=== PATIENT | female | born 1940 ===

== ENCOUNTER 2017-11-16 23:57 | Emergency (ER) | payer MEDICARE, MEDICAID ==
--- NOTE | 2017-11-17 00:37 | C.PDOC ---
History Of Present Illness 77 y/o female with PMHx of GERD, now presents with epigastric pain and left flank pain for several hours. Associated with yellow vomiting. Patient denies any hematemesis, urinary symptoms, constipation, and diarrhea. Denies prior Hx of kidney stones. Pain is similar to that with prior episodes of GERD, but now also includes flank pain. Time Seen by Provider: 11/17/17 00:32 Chief Complaint (Nursing): Abdominal Pain History Per: Patient History/Exam Limitations: no limitations Onset/Duration Of Symptoms: Hrs Current Symptoms Are (Timing): Still Present Associated Symptoms: Vomiting, Back Pain Past Medical History Reviewed: Historical Data, Nursing Documentation, Vital Signs Vital Signs: Last Vital Signs Temp 97.3 F L 11/17/17 02:57 Pulse 75 11/17/17 02:57 Resp 18 11/17/17 02:57 BP 124/84 11/17/17 02:57 Pulse Ox 98 11/17/17 04:47 - Medical History PMH: GERD, HTN, Hypercholesterolemia Surgical History: Cholecystectomy, Pacemaker Family History: States: No Known Family Hx - Social History Hx Alcohol Use: No Hx Substance Use: No - Immunization History Hx Tetanus Toxoid Vaccination: No Hx Influenza Vaccination: Yes Hx Pneumococcal Vaccination: Yes Review Of Systems Except As Marked, All Systems Reviewed And Found Negative. Constitutional: Negative for: Fever, Chills Gastrointestinal: Positive for: Nausea, Vomiting, Abdominal Pain (epigastric). Negative for: Diarrhea, Constipation, Hematemesis Genitourinary: Negative for: Dysuria, Frequency, Incontinence, Hematuria Musculoskeletal: Positive for: Other (Left flank pain) Physical Exam - Physical Exam Appears: Non-toxic, No Acute Distress Skin: Normal Color, Warm, Dry Head: Atraumatic, Normacephalic Eye(s): bilateral: Normal Inspection (Anicteric sclerae, conjunctiva pink), PERRL, EOMI Ear(s): Bilateral: Normal Oral Mucosa: Moist Neck: Normal, Normal ROM, Supple Chest: Symmetrical Cardiovascular: Rhythm Regular, No Murmur, Other (S1,S2 are wnl) Respiratory: No Accessory Muscle Use, No Rhonchi, No Wheezing, Other (Lungs clear to auscultation) Gastrointestinal/Abdominal: Soft, Tenderness (Epigastric discomfort on palpation , No lower abdominal discomfort), No Guarding, No Rebound Back: CVA Tenderness (Left), No Vertebral Tenderness Extremity: Bilateral: Atraumatic, Normal Color And Temperature, Normal ROM Neurological/Psych: Oriented x3, Normal Speech ED Course And Treatment - Laboratory Results Result Diagrams: 11/17/17 00:47 11/17/17 00:47 O2 Sat by Pulse Oximetry: 98 (RA) Pulse Ox Interpretation: Normal Medical Decision Making Medical Decision Making: Impression: Gastritis vs GERD, also consider renal colic Initial Plan: * CMP * CBC * Lipase * Urinalysis * Morphine 2 mg IVP * Reglan 10 mg IVP * CT Abd/Pelvis * Reevaluation after meds given Pt with essentially neg w/u.Pt is comfortable after antiemetics,protonix Disposition - Disposition Referrals: [facility] [Outside] Disposition: HOME/ ROUTINE Disposition Time: 04:49 Condition: FAIR Prescriptions: Pantoprazole Sodium [Protonix] 40 mg PO DAILY #14 tab Instructions: Acid Reflux (Gastroesophageal Reflux Disease), Adult (DC) Forms: [employer] (Chilean) Print Language: SWEDISH - Clinical Impression Clinical Impression: Gastroesophageal reflux disease - Scribe Statement The provider has reviewed the documentation as recorded by the Scribe (Quin Petty) Provider Attestation: All medical record entries made by the Scribe were at my direction and personally dictated by me. I have reviewed the chart and agree that the record accurately reflects my personal performance of the history, physical exam, medical decision making, and the department course for this patient. I have also personally directed, reviewed, and agree with the discharge instructions and disposition.
[2017-11-17 00:51] LABS: BASO % 0.6 % (0.0-2.0); EOS % 0.1 % (0.0-4.0); HEMOGLOBIN 14.6 g/dL (11.0-16.0); LYMPH # 0.8 K/uL (1.0-4.3); LYMPH % 11.3 % (20.0-40.0); MEAN CELL VOLUME 87.9 fL (81.0-99.0); MEAN CORPUSCULAR HEMOGLOBIN 30.7 pg (27.0-31.0); MEAN CORPUSCULAR HGB CONC 34.9 g/dL (33.0-37.0); MEAN PLATELET VOLUME 8.4 fL (7.2-11.7); MONO # 0.4 K/uL (0.0-0.8); MONO % 5.6 % (0.0-10.0); NEUT # 5.5 K/uL (1.8-7.0); NEUT % 82.4 % (50.0-75.0); RBC 4.76 Mil/uL (3.80-5.20); RED CELL DISTRIBUTION WIDTH 14.1 % (11.5-14.5); WHITE BLOOD COUNT 6.7 K/uL (4.8-10.8)
[2017-11-17 01:01] LABS: CALCIUM 8.8 mg/dl (8.6-10.4); GFR AFRICAN-AMERICAN > 60; GFR NON-AFRICAN AMERICAN > 60; LIPASE 83 U/L (23-300)
[2017-11-17 01:04] LABS: ALB/GLOB RATIO 1.3 (1.0-2.1); ALBUMIN 4.3 g/dL (3.5-5.0); ALT/SGPT 14 U/L (9-52); AST/SGOT 34 U/L (14-36); BLOOD UREA NITROGEN 13 mg/dL (7-17)
[2017-11-17] MEDS ORDERED: Morphine 4 MG/ML VIAL ONE (01:14)
--- NOTE | 2017-11-17 01:44 | CT ---
EXAM: CT Abdomen and Pelvis Without Intravenous Contrast CLINICAL HISTORY: 77 years old, female; Pain; Abdominal pain; Additional info: Abd pain TECHNIQUE: Axial computed tomography images of the abdomen and pelvis without intravenous contrast. All CT scans at this facility use one or more dose reduction techniques, viz.: automated exposure control; ma/kV adjustment per patient size (including targeted exams where dose is matched to indication; i.e. head); or iterative reconstruction technique. 638 images are submitted. 638 images are submitted. Coronal , axial and sagittal reformatted images were created and reviewed. COMPARISON: No relevant prior studies available. FINDINGS: Lower thorax: Bibasilar mild nonspecific infiltrates are present, consistent with atelectasis or pneumonia. Cardiomegaly. There are cardiac leads from a cardiac rhythm maintenance device. Small hiatal hernia. ABDOMEN: Liver: Unremarkable. Gallbladder and bile ducts: Cholecystectomy. Pancreas: Unremarkable. No ductal dilation. Spleen: Unremarkable. No splenomegaly. Adrenals: Right adrenal nodule measuring 1.5 cm with mean Hounsfield unit of -9 representing adrenal adenoma. There is a fat containing nodule in the left adrenal gland seen on image 36 series 3 representing myelolipoma. Kidneys and ureters: No ureteral stones. No hydronephrosis. Stomach and bowel: Nonspecific gastric thickening likely due to under distention. Correlation with clinical data is recommended if gastritis is suspected. Diverticulosis. Sigmoid postoperative changes. Large amount of stool in the colon. Correlation with patient's clinical history of constipation is recommended. Appendix: Normal appendix. PELVIS: Bladder: Partially decompressed bladder with bladder wall thickening. Correlation with urinalysis is recommended only if clinical cystitis is suspected. Reproductive: Uterus is seen. ABDOMEN and PELVIS: Intraperitoneal space: Unremarkable. No free air. No significant fluid collection. Bones/joints: L4-L5 degenerative disc disease with vacuum disc. Degenerative changes within bilateral hips. No acute fracture. No dislocation. Soft tissues: Unremarkable. Vasculature: Left pelvic phleboliths. No abdominal aortic aneurysm. Lymph nodes: Unremarkable. No enlarged lymph nodes. IMPRESSION: No acute abnormality on this noncontrast CT examination of the abdomen and pelvis .
[2017-11-17 02:58] VITALS: BP 124/84; PULSE 75; RESP 18; TEMP 97.3
[2017-11-17 04:48] VITALS: O2SAT 98
== END 2017-11-17 02:57 | disposition home or self-care (01) ==
LOC: SUPCPDRO 23:57 → C.ER 23:57
DX: K21.9 Gastro-esophageal reflux disease without esophagitis (principal)
CPT/HCPCS: 74176; 80053; 83690; 85025; 96374; 96375; 99284; J2270; J2765

== ENCOUNTER 2017-12-01 07:15 | Day surgery (SDC) | payer MEDICARE, MEDICAID ==
[2017-12-01 07:34] VITALS: BMI 28.5
[2017-12-01] MEDS ORDERED: Lactated Ringer's 500 ML IV ONE (08:32)
[2017-12-01] MEDS ORDERED: Propofol 10 mg/ml Inj (20 ML) ONE (08:43)
[2017-12-01] MEDS ORDERED: Lidocaine Hydrochloride 5 ML INJ ONE (08:43)
[2017-12-01 09:16] VITALS: TEMP 97.8
[2017-12-01 09:54] VITALS: O2SAT 100
[2017-12-01 10:17] VITALS: BP 115/67; PULSE 60; RESP 12
== END 2017-12-01 10:15 | disposition home or self-care (01) ==
LOC: C.ENDO 07:15
PROVIDERS: ATTEND Internal Medicine Gastroenterology
DX: Z12.11 Encounter for screening for malignant neoplasm of colon (principal); Z85.038 Personal history of other malignant neoplasm of large intestine; K21.9 Gastro-esophageal reflux disease without esophagitis; K57.30 Diverticulosis of large intestine without perforation or abscess without bleeding; K64.1 Second degree hemorrhoids; K21.0 Gastro-esophageal reflux disease with esophagitis; K29.70 Gastritis, unspecified, without bleeding; K26.9 Duodenal ulcer, unspecified as acute or chronic, without hemorrhage or perforation; E78.5 Hyperlipidemia, unspecified; I10 Essential (primary) hypertension; E03.9 Hypothyroidism, unspecified; Z79.899 Other long term (current) drug therapy
CPT/HCPCS: 43239; 88305; G0105; J2704; J7120

== ENCOUNTER 2018-03-02 05:47 | Day surgery (SDC) | payer MEDICARE, MEDICAID ==
[2018-03-02] MEDS ORDERED: Propofol 10 mg/ml Inj (20 ML) ONE (07:51)
[2018-03-02] MEDS ORDERED: Lactated Ringer's 500 ML IV ONE (08:02)
--- NOTE | 2018-03-02 08:02 | CP.SDSHP ---
Same Day Surgery H & P - History Proposed Procedure: colonoscopy Pre-Op Diagnosis: history of colon cancer - Previous Medical/Surgical History Cardiac: Hypertension - Allergies Allergies: Allergies No Known Allergies Allergy (Verified 03/02/18 06:54) - Physical Exam General Appearance: NAD Vital Signs: Vital Signs 03/02/18 06:45 Temperature 989.9 F H Pulse Rate 66 Respiratory 19 Rate Blood Pressure 153/83 H O2 Sat by Pulse 97 Oximetry Mental Status: Alert & Oriented x3 Neuro: WNL Heart: WNL Lungs: WNL GI: WNL - {Optional Preform as Required} Abdomen: WNL - Impression Pt. Evaluated Today:Candidate for Anesthesia & Procedure: Yes - Date & Time Date: 03/02/18 Time: 08:02 Short Stay Discharge - Short Stay Discharge Admitting Diagnosis/Reason for Visit: HISTORY OF COLON CA Disposition: HOME/ ROUTINE
[2018-03-02] MEDS ORDERED: Lidocaine Hydrochloride 5 ML INJ ONE (08:38)
[2018-03-02 08:52] VITALS: TEMP 98
[2018-03-02 09:07] VITALS: O2SAT 100
[2018-03-02 09:25] VITALS: RESP 17
[2018-03-02 09:26] VITALS: BP 140/85; PULSE 64
== END 2018-03-02 09:45 | disposition home or self-care (01) ==
LOC: C.ENDO 05:47
PROVIDERS: ATTEND Internal Medicine Gastroenterology
DX: D12.5 Benign neoplasm of sigmoid colon (principal); Z85.038 Personal history of other malignant neoplasm of large intestine; Z08 Encounter for follow-up examination after completed treatment for malignant neoplasm; K64.1 Second degree hemorrhoids; K57.30 Diverticulosis of large intestine without perforation or abscess without bleeding; I10 Essential (primary) hypertension
CPT/HCPCS: 45380; 88305; J2704; J7120